=== PATIENT | female | born 1955 | race Caucasian/White ===

== ENCOUNTER → 2024-07-05 | Day surgery (SDC) | payer MEDICARE ==
[~2024-07-05] MED LIST: Propofol 200 MG/20 ML SDV ONE; fentaNYL 50 MCG/ML SDV ONE
[2024-07-05] MEDS: Sodium Chloride 0.9% 1,000 ML IV SCH (08:20)
== END ==
LOC: JP.SDS 07:23
PROVIDERS: ATTEND Surgery
DX: Z12.11 Encounter for screening for malignant neoplasm of colon (principal)
CPT/HCPCS: G0121; J2704; J3010; J7030; 00811-QZ